=== PATIENT | male | born 1955 | race Caucasian/White ===

== ENCOUNTER 2016-04-17 01:45 | Emergency (ER) | payer OTHER ==
[~2016-04-17] VITALS: Ht 185.4 cm; Wt 108.9 kg
[~2016-04-17 01:45] MED LIST: IBUP-1481 PO
[2016-04-17 02:44] LABS: BASOPHILS # (AUTO) 0.1 /CMM (0.0-0.2); BASOPHILS % (AUTO) 0.9 % (0.0-2.0); DIFF TOTAL % 100 %; EOSINOPHILS # (AUTO) 0.4 /CMM (0.0-0.7); EOSINOPHILS % (AUTO) 3.7 % (0.0-6.0); HEMATOCRIT 40 % (39-51); HEMOGLOBIN 13.7 g/dL (13.5-17.5); LYMPHOCYTES # (AUTO) 3.1 /CMM (0.8-4.8); LYMPHOCYTES % (AUTO) 30.1 % (20.0-44.0); MEAN CORPUSCULAR HEMOGLOBIN 29 PG (26.0-33.0); MEAN CORPUSCULAR HGB CONC 34 g/dl (31.0-36.0); MEAN CORPUSCULAR VOLUME 87 fL (80-96); MONOCYTES # (AUTO) 0.6 /CMM (0.1-1.30); NEUTROPHILS # (AUTO) 6.2 /CMM (1.8-8.9); NEUTROPHILS % (AUTO) 59.3 % (43.0-81.0); PLATELET COUNT (AUTO) 221 /CMM (150-450); RED BLOOD CELL COUNT(AUTO) 4.66 MIL/uL (4.5-6.0); WHITE BLOOD COUNT (AUTO) 10.4 K/uL (4.3-11.0)
[2016-04-17 02:58] LABS: CALCIUM, SERUM 8.3 mg/dL (8.5-10.1); POTASSIUM 3.8 mmol/L (3.5-5.1)
[2016-04-17 03:05] LABS: INR 0.94 (0.87-1.13); PROTHROMBIN TIME 10.1 SECS (9.5-12.7)
[2016-04-17] MEDS ORDERED: HYDROCODONE/APAP 5/325MG 1 EACH TABLET ONE (04:09)
[2016-04-17] MEDS ORDERED: CEPHALEXIN MONOHYDRATE 500 MG CAPSULE PO ONE ×2 (04:09→04:30)
[2016-04-17] MEDS ORDERED: TDAP [DIPH/PERTUSSIS/TET] 0.5 ML VIAL IM ONE ×2 (04:10→04:30)
[2016-04-17] MEDS ORDERED: HYDROCODONE/APAP 5/325MG 1 EACH TABLET PO ONE (04:30)
[2016-04-17 06:55] VITALS: BP 124/62
== END 2016-04-17 06:55 | disposition home or self-care (01) ==
LOC: ER 01:51
DX: S02.2XXA Fracture of nasal bones, initial encounter for closed fracture (principal); I10 Essential (primary) hypertension; M54.30 Sciatica, unspecified side; Z88.1 Allergy status to other antibiotic agents; Z88.8 Allergy status to other drugs, medicaments and biological substances; F17.200 Nicotine dependence, unspecified, uncomplicated; Z59.0 Homelessness; Y08.89XA Assault by other specified means, initial encounter; Y93.89 Activity, other specified; Y92.89 Other specified places as the place of occurrence of the external cause; Y99.8 Other external cause status; R79.1 Abnormal coagulation profile
CPT/HCPCS: 36415; 70450; 70486; 71010; 72125; 80048; 85025; 85730; 90471; 90715; 99285; A4606; A6402; Z7610

== ENCOUNTER 2016-10-17 17:33 | Emergency (ER) | payer OTHER ==
[~2016-10-17] VITALS: Ht 185.4 cm; Wt 113.4 kg
[2016-10-17 18:06] VITALS: BP 123/76
--- NOTE | 2016-10-17 20:00 | NUR ---
CALLED PT IN [place], NO RESPONSE
--- NOTE | 2016-10-17 21:54 | NUR ---
CALLED PT IN [place], NO RESPONSE
== END 2016-10-17 21:55 | disposition left against medical advice (07) ==
LOC: ER 17:34
DX: Z53.21 Procedure and treatment not carried out due to patient leaving prior to being seen by health care provider (principal)
CPT/HCPCS: A4606; Z7610

== ENCOUNTER 2018-07-17 11:08 | Inpatient (IN) | payer MEDICAID, OTHER ==
[~2018-07-17] VITALS: Ht 185.4 cm; Wt 119.8 kg
[~2018-07-17 11:08] MED LIST changes: -IBUP-1481 PO; +IBUP-1953 PO
--- NOTE | 2018-07-17 11:15 | NUR ---
PT BIB SELF C/O "Abdominal pain/back pain/chills on off x couple months on/off, Fever" PT IS AAOX4, NOT IN RESPIRATORY DISTRESS, NOTED ELEVATED HR, HOOKED TO LOGISTICS SOLUTION MANAGER, KEPT RESTED AND COMFORTABLE, WILL CONTINUE TO MONITOR.
--- NOTE | 2018-07-17 11:24 | NUR ---
SEEN AND EXAMINED BY DR. HURST.
[2018-07-17] MEDS ORDERED: FAMOTIDINE/PF INJ 20 MG/2 ML VIAL IV ONE ×2 (11:30→11:32)
[2018-07-17] MEDS ORDERED: IV NS 0.9% 1,000 ML BAG IV ONE (11:30)
[2018-07-17] MEDS ORDERED: ONDANSETRON HCL/PF 4 MG/2 ML VIAL IVP ONE (11:30)
[2018-07-17] MEDS ORDERED: ONDANSETRON HCL/PF 4 MG/2 ML VIAL ONE (11:32)
[2018-07-17 11:45] LABS: BASOPHILS % (AUTO) 0.3 % (0.0-2.0); EOSINOPHILS % (AUTO) 0.6 % (0.0-6.0); HEMATOCRIT 35 % (39-51); HEMOGLOBIN 11.4 g/dL (13.5-17.5); LYMPHOCYTES # (AUTO) 1.2 /CMM (0.8-4.8); LYMPHOCYTES % (AUTO) 7.7 % (20.0-44.0); MEAN CORPUSCULAR HGB CONC 33 g/dl (31.0-36.0); MEAN CORPUSCULAR VOLUME 85 fL (80-96); MONOCYTES % (AUTO) 6.6 % (2.0-12.0); NEUTROPHILS # (AUTO) 12.9 /CMM (1.8-8.9); NEUTROPHILS % (AUTO) 84.8 % (43.0-81.0); PLATELET COUNT (AUTO) 169 /CMM (150-450); RED BLOOD CELL COUNT(AUTO) 4.08 MIL/uL (4.5-6.0); WHITE BLOOD COUNT (AUTO) 15.2 K/uL (4.3-11.0)
--- NOTE | 2018-07-17 11:45 | NUR ---
IV LINE ESTABLISHED, LABS DRAWNED AND SENT TO LAB.
--- NOTE | 2018-07-17 11:50 | NUR ---
PT IS WHEELED TO CT SCAN VIA [facility].
--- NOTE | 2018-07-17 11:59 | NUR ---
CALLED HOUSE SUP FOR TELE BED.
[2018-07-17] MEDS ORDERED: DILTIAZEM HCL 50 MG IV IV ONE (12:00)
[2018-07-17] MEDS ORDERED: DILTIAZEM HCL 25 MG IV ONE (12:01)
--- NOTE | 2018-07-17 12:18 | NUR ---
URINE SPECIMEN COLLECTED AND SENT TO LAB.
[2018-07-17 12:24] LABS: ALANINE AMINOTRANSFERASE 14 U/L (12-78); ALBUMIN 2.9 g/dL (3.4-5.0); ALKALINE PHOSPHATASE 92 U/L (46-116); ASPARTATE AMINOTRANSFERASE 27 U/L (15-37); BILIRUBIN,TOTAL 0.8 mg/dL (0.2-1.0); CALCIUM, SERUM 8.1 mg/dL (8.5-10.1); CARBON DIOXIDE 19 mmol/L (21-32); CHLORIDE 96 mmol/L (98-107); CREATININE 1.9 mg/dL (0.6-1.3); GLUCOSE 236 mg/dL (74-106); LIPASE 110 U/L (73-393); SODIUM SERUM 129 mmol/L (136-145); TOTAL PROTEIN, SERUM 7.6 g/dL (6.4-8.2); UREA NITROGEN, BLOOD 28 mg/dL (7-18)
[2018-07-17 12:30] LABS: APPEARANCE,URINE Cloudy (CLEAR); BILIRUBIN,URINE MODERATE (NEGATIVE); BLOOD, URINE Large Ery/uL (NEGATIVE); COLOR,URINE Yellow (YELLOW); KETONES,URINE 15 (NEGATIVE); LEUKOCYTE ESTERASE ,URINE Small (NEGATIVE); NITRITE, URINE Negative (NEGATIVE); PH,URINE 5.5 (5.0-8.0); PROTEIN,URINE >=300 mg/dl (NEGATIVE); UGLUCOSE Negative (NEGATIVE)
[2018-07-17 12:41] LABS: BACTERIA,URINE 2+ /HPF (None Seen); FINE GRANULAR CASTS,URINE Few /LPF (None Seen); HYALINE CASTS, URINE Few /LPF (None Seen); RBC,URINE 51-80 /HPF (0-2); SQUAMOUS EPITHELIAL CELL,UR None Seen /HPF (None Seen); WBC,URINE 21-50 /HPF (0-3)
[2018-07-17] MEDS ORDERED: BLOO-668 IN (12:45)
[2018-07-17] MEDS ORDERED: GLIM2TAB2 PO (12:45)
[2018-07-17] MEDS ORDERED: AMLO10TA7 PO (12:45)
[2018-07-17] MEDS ORDERED: SIMV10TA6 PO (12:45)
[2018-07-17] MEDS ORDERED: METF-441 PO (12:45)
[2018-07-17] MEDS ORDERED: LISI30TA4 PO (12:45)
--- NOTE | 2018-07-17 12:59 | NUR ---
BED 322-2, MIGUEL ANGEL FOR REPORT
[2018-07-17] MEDS ORDERED: ZOLPIDEM TARTRATE 5 MG TABLET PO PRN (13:00)
[2018-07-17] MEDS ORDERED: Z GUARD REMEDY 2 OZ OINT TP PRN (13:00)
[2018-07-17] MEDS ORDERED: ACETAMINOPHEN 325 MG TABLET PO PRN (13:00)
[2018-07-17] MEDS ORDERED: MAGNESIUM HYDROXIDE 30 ML UDC PO PRN (13:00)
[2018-07-17] MEDS ORDERED: MAG HYDROX/AL HYDROX/SIMETH 30 ML UDC PO PRN (13:00)
[2018-07-17] MEDS ORDERED: ONDANSETRON HCL/PF 4 MG/2 ML VIAL IVP PRN (13:00)
--- NOTE | 2018-07-17 13:11 | NUR ---
REPORT GIVEN TO STAN FOR KIA.
[2018-07-17 14:00] VITALS: BP 105/65
--- NOTE | 2018-07-17 14:00 | NUR ---
MALARIOLOGIST NOTES PATIENT ADMITTED FROM ER ON TELE 62Y/OLD MALE ON Dx OF A-FIB. PATIENT A/O X4, NO ACUTE RESPIRATORY DISTRESS, UNLABORED. TELE MONITOR ON ST-113, V/S TAKEN BP-105/65, P-118, R-20, T-98.4, ROOM AIR. SKIN ASSESSMENT DONE INTACT. PATIENT WAS COMPLAINING OF LOWER BACK PAIN 9/10 PER PAIN SCALE. PATIENT AMBULATORY SELF CARE, USING URINAL. CALL LIGHT WITHIN TO REACH. BELONGING CHECKED. DR CARL AWARE OF NEW PATIENT , AND MEDICATION. CONTINUED MONITORING.
[2018-07-17] MEDS: IV NS 0.9% 1,000 ML IV SCH (14:16)
[2018-07-17] MEDS: HYDROCODONE/APAP 5/325MG 1 EACH TABLET PO PRN (14:24)
--- NOTE | 2018-07-17 14:24 | NUR ---
RN NOTES ADMINISTERED NARCO 5/325 MG PO PRN FOR LOWER BACK PAIN 12/14 PER PATIENT REQUEST, BS-168 MG/DL, GIVEN SNACK TO EAT, CALL LIGHT WITHIN TO REACH, SAFETY PRECAUTION MAINTAINED ALL THE TIME.
[2018-07-17] MEDS: CEFTRIAXONE 1 G in IV D5W 50 ML IV SCH (14:44)
--- NOTE | 2018-07-17 14:44 | NUR ---
RN NOTES ADMINISTERED MAALOX FOR STOMACHACHE, ALSO INFUSING ROCEPHIN 1 GR IV.
[2018-07-17 17:41] VITALS: BP 113/65
[2018-07-17] MEDS: SIMVASTATIN 10 MG TABLET PO SCH (17:45)
--- NOTE | 2018-07-17 18:00 | NUR ---
RN NOTES DVT PUMP ON FOR CLOTH PREVENTION.
[2018-07-17 18:07] LABS: MAGNESIUM 1.6 mg/dL (1.8-2.4); PHOSPHORUS 2.5 mg/dL (2.5-4.9)
[2018-07-17 18:25] VITALS: BP 113/65
[2018-07-17] MEDS ORDERED: Magnesium 1GM/D5W 100ML PREMIX 100 ML IV SCH (18:30)
--- NOTE | 2018-07-17 18:30 | NUR ---
RN NOTES PATIENT STABLE INFUSING MAGNESIUM 100 ML/HE, PATIENT STABLE, SCHEDULED MEDICATION ADMINISTERED, V/S STABLE, PATIENT REFUSED PAIN AT THIS TIME. CALL LIGHT WITHIN TO REACH, SAFETY PRECAUTION MAINTAINED ALL THE TIME.
--- NOTE | 2018-07-17 19:10 | NUR ---
GANG MOWER OPERATOR OPENING NOTES Received patient in bed, watching TV. Alert, orientedx4. Breathing even and unlabored. On O2 2LPM via NC saturating well. Denies any pain. Tele monitor in place, AFIB 113. IV on L hand infusing Magnesium @100mL/hr. Call light within reach. Bed in lowest, locked position. Will continue to monitor accordingly
[2018-07-17 20:00] VITALS: BP 129/68
[2018-07-18] VITALS (8 sets, daily range): BP systolic 95–151; BP diastolic 55–80
[2018-07-18] MEDS: HYDROCODONE/APAP 5/325MG 1 EACH TABLET PO PRN ×3 (00:31→20:29)
--- NOTE | 2018-07-18 00:31 | NUR ---
RN NOTES Patient c/o back pain, 11/13. [place] 5-325 PO given as ordered. Will continue to monitor
[2018-07-18] MEDS: IV NS 0.9% 1,000 ML IV SCH ×3 (02:00→19:56)
[2018-07-18 06:11] LABS: BASOPHILS # (AUTO) 0.1 /CMM (0.0-0.2); BASOPHILS % (AUTO) 0.5 % (0.0-2.0); EOSINOPHILS % (AUTO) 1.2 % (0.0-6.0); HEMATOCRIT 33 % (39-51); LYMPHOCYTES # (AUTO) 0.9 /CMM (0.8-4.8); LYMPHOCYTES % (AUTO) 7.3 % (20.0-44.0); MEAN CORPUSCULAR HGB CONC 33 g/dl (31.0-36.0); MEAN CORPUSCULAR VOLUME 85 fL (80-96); MONOCYTES % (AUTO) 8.1 % (2.0-12.0); NEUTROPHILS # (AUTO) 10.4 /CMM (1.8-8.9); NEUTROPHILS % (AUTO) 82.9 % (43.0-81.0); PLATELET COUNT (AUTO) 164 /CMM (150-450); RED BLOOD CELL COUNT(AUTO) 3.91 MIL/uL (4.5-6.0); WHITE BLOOD COUNT (AUTO) 12.5 K/uL (4.3-11.0)
[2018-07-18 06:40] LABS: FREE PSA 0.08 ng/mL (0.00-45); PROSTATE SPECIFIC ANTIGEN SCR 1.88 ng/mL (0.00-4.00)
[2018-07-18 06:46] LABS: CALCIUM, SERUM 8.4 mg/dL (8.5-10.1); CREATININE 1.8 mg/dL (0.6-1.3); MAGNESIUM 2.1 mg/dL (1.8-2.4); PHOSPHORUS 2.6 mg/dL (2.5-4.9); POTASSIUM 4.4 mmol/L (3.5-5.1)
--- NOTE | 2018-07-18 06:46 | NUR ---
BANQUET CAPTAIN CLOSING NOTES Patient resting in bed alert and oriented x4. No complaints of pain at this time. Respirations even and unlabored, no acute distress noted. Peripheral IV infusing @ 100mL/hr. Tele monitor in place- a-fib 128. Safety and fall precautions in place: bed in lowest and locked position, side rails up x2, call light and personal possessions within reach. Will endorse KIA to oncoming RN
--- NOTE | 2018-07-18 07:20 | NUR ---
STEEL WORKER OPENING NOTE RECEIVED PATIENT IN BED. ALERT ORIENTED X3. ON 2L O2 VIA NC, TOLERATING WELL. IN NO APPARENT DISTRESS OR DISCOMFORT AT THIS TIME. RESPIRATIONS EVEN ANS UNLABORED. DENIES PAIN AND SOB. PATIENT ON TELE MONITORING WITH A-FIB AND HR OF 129. LEFT HAND 22G IVC WITH NS RUNNING AT 100 ML/HR, PATENT AND INTACT. PATIENT KEPT CLEAN AND COMFORTABLE. ALL NEEDS ATTENDED, SAFETY MEASURES IN PLACE, BED IN LOW LOCKED POSITION, SIDE RAILS UP X2, CALL LIGHT WITHIN EASY REACH. WILL CONTINUE TO MONITOR.
[2018-07-18] MEDS: GLIMEPIRIDE 4 MG TABLET PO SCH (08:45)
[2018-07-18] MEDS ORDERED: LISINOPRIL (10MG) 10 MG TABLET PO SCH (09:00)
[2018-07-18] MEDS ORDERED: RIVAROXABAN 10 MG TABLET PO SCH (09:00)
[2018-07-18] MEDS ORDERED: METFORMIN 850 MG TABLET PO SCH (09:00)
[2018-07-18] MEDS ORDERED: AMLODIPINE BESYLATE 10 MG TABLET PO SCH (09:00)
[2018-07-18] MEDS: DILTIAZEM HCL CD 240 MG PO SCH (09:49)
[2018-07-18] MEDS: CEFTRIAXONE 1 G in IV D5W 50 ML IV SCH (14:40)
[2018-07-18] MEDS: SIMVASTATIN 10 MG TABLET PO SCH (17:12)
--- NOTE | 2018-07-18 17:48 | NUR ---
TELE/RN NOTE RECEIVED THE PATIENT FROM SHREYAS KWAN. THE PATIENT ALERT AND ORIENTED X4. DENIES PAIN. RESPIRATION REGULAR AND UNLABORED. IN ROOM AIR AND DENIES SOB. LEFT HAND G 22 PATENT AND NORMAL SALINE INFUSING AT 100ML/HR. BED LOW AND LOCKED. WILL CONTINUE TO MONITOR.
--- NOTE | 2018-07-18 17:57 | NUR ---
PATIENT IN STABLE CONDITION. ENDORSED TO CHAY RN FOR KIA.
--- NOTE | 2018-07-18 18:54 | NUR ---
TELE/RN CLOSING NOTE THE PATIENT ALERT AND ORIENTED X4. IN ROOM AIR AND SATURATION AT 96%. DENIES SOB. RESPIRATION REGULAR AND UNLABORED. DENIES PAIN. EXTERNAL TELE BOX READING IS AT AFIB 98. THE PATIENT IN NO APPARENT DISTRESS. LEFT HAND G 22 PATENT AND NORMAL SALINE INFUSING PER ORDER AND NO S/S INFILTRATION NOTED. BED LOW AND LOCKED. SIDE RAILS UP X3. CALL LIGHT WITHIN REACH. WILL ENDORSE TO BOTTLE PACKING MACHINE CLEANER.
--- NOTE | 2018-07-18 19:21 | NUR ---
SENIOR QA ENGINEER RECEIVE PT IN BED A/O X 3, A-FIB 98 IN THE TELE MONITOR RESPIRATIONS EVEN AND UNLABORED, NO SOB NOTED, NO DISTRESS, SAFETY MEASURES IN PLACE. WILL CONTINUE TO MONITOR.
[2018-07-19 00:05] VITALS: BP 95/55
[2018-07-19 04:16] VITALS: BP 105/60
[2018-07-19] MEDS: IV NS 0.9% 1,000 ML IV SCH (05:15)
--- NOTE | 2018-07-19 06:08 | NUR ---
FOREIGN LANGUAGE INSTRUCTOR CLOSING ASLEEP AND EASILY AWAKEN, WITH TELE READING OF A-FIB 116 IN THE TELE MONITOR. RESPIRATION EVEN AND UNLABORED, STABLE AND NOT IN DISTRESS, NURSING CARE RENDERED. NEEDS ATTENDED AND ANTICIPATED, KEPT CLEAN AND DRY AND COMFORTABLE. NO COMPLAIN OF PAIN. SAFETY MEASURES AT ALL TIMES. ENDORSE TO THE NEXT SHIFT POC.
[2018-07-19 07:05] LABS: BASOPHILS % (AUTO) 0.5 % (0.0-2.0); EOSINOPHILS % (AUTO) 1.6 % (0.0-6.0); HEMATOCRIT 34 % (39-51); HEMOGLOBIN 11.5 g/dL (13.5-17.5); LYMPHOCYTES % (AUTO) 9.5 % (20.0-44.0); MEAN CORPUSCULAR HGB CONC 34 g/dl (31.0-36.0); MEAN CORPUSCULAR VOLUME 84 fL (80-96); MONOCYTES # (AUTO) 1.1 /CMM (0.1-1.30); MONOCYTES % (AUTO) 11.1 % (2.0-12.0); NEUTROPHILS # (AUTO) 7.9 /CMM (1.8-8.9); NEUTROPHILS % (AUTO) 77.3 % (43.0-81.0); PLATELET COUNT (AUTO) 145 /CMM (150-450); RED BLOOD CELL COUNT(AUTO) 4.08 MIL/uL (4.5-6.0); WHITE BLOOD COUNT (AUTO) 10.3 K/uL (4.3-11.0)
[2018-07-19 07:13] LABS: ALBUMIN 2.6 g/dL (3.4-5.0); BILIRUBIN,TOTAL 0.8 mg/dL (0.2-1.0); CALCIUM, SERUM 8.2 mg/dL (8.5-10.1); CREATININE 1.5 mg/dL (0.6-1.3); MAGNESIUM 1.8 mg/dL (1.8-2.4); PHOSPHORUS 2.7 mg/dL (2.5-4.9); POTASSIUM 3.9 mmol/L (3.5-5.1); TOTAL PROTEIN, SERUM 7.1 g/dL (6.4-8.2)
--- NOTE | 2018-07-19 07:32 | NUR ---
RN OPENING NOTES PT AWAKE AND RESTING IN BED. PT COMPLAINS OF BACK PAIN. NO COMPLAINTS OF SOB OR CHEST PAIN AT THIS TIME. PT HAS A LEFT HAND #22 IV RUNNING NS @100 ML/HR. PT TOLERATING FLUIDS WELL. SAFETY PRECAUTIONS IN PLACE, BED IN LOWEST LOCKED POSITION, X2 SIDE RAILS UP AND CALL LIGHT WITHIN REACH. WILL CONTINUE TO MONITOR. Addendum: 07/19/18 at 0735 by ANGIE KIDD RN PT TELE MONITORED WITH AFIB
[2018-07-19 08:12] VITALS: BP 145/64
--- NOTE | 2018-07-19 08:30 | NUR ---
RN NOTES PT NOTED TO HAVE A TEMPERATURE OF 99.6. WILL GIVE TYLENOL AND CONTINUE TO MONITOR.
[2018-07-19] MEDS: DILTIAZEM HCL CD 240 MG PO SCH (08:39)
[2018-07-19] MEDS: GLIMEPIRIDE 4 MG TABLET PO SCH (08:40)
--- NOTE | 2018-07-19 09:30 | NUR ---
RN NOTES PT TEMPERATURE 98.4.
[2018-07-19] MEDS: METOPROLOL TARTRATE 25 MG TABLET PO SCH ×2 (10:27→22:12)
[2018-07-19 12:15] VITALS: BP 105/55
[2018-07-19] MEDS: CEFTRIAXONE 1 G in IV D5W 50 ML IV SCH (14:50)
[2018-07-19 16:00] VITALS: BP 142/74
[2018-07-19] MEDS: SIMVASTATIN 10 MG TABLET PO SCH (17:36)
[2018-07-19] MEDS: RIVAROXABAN 10 MG TABLET PO SCH (17:36)
[2018-07-19] MEDS: IV NS 0.9% 1,000 ML IV PRN (17:37)
--- NOTE | 2018-07-19 18:18 | NUR ---
RN CLOSING NOTES PT AWAKE AND RESTING IN BED. NO COMPLAINTS OF SOB OR CHEST PAIN DURING SHIFT. PT HAS A LEFT HAND #22 IV RUNNING NS @100 ML/HR. PT TOLERATING FLUIDS WELL. PT TELE MONITORED WITH AFIB. SAFETY PRECAUTIONS IN PLACE, BED IN LOWEST LOCKED POSITION, X2 SIDE RAILS UP AND CALL LIGHT WITHIN REACH. WILL ENDORSE TO TOOL DISPATCHER NURSE FOR CONTINUITY OF CARE.
--- NOTE | 2018-07-19 19:35 | NUR ---
TELE/RN NOTES RECEIVED PT. LYING IN BED. PT. IS AWAKE, ALERT AND ORIENTED X4. BREATHING EVEN AND UNLABORED ON ROOM AIR. NO SOB, RESPIRATORY DISTRESS OR COMPLAINTS OF PAIN NOTED AT THIS TIME. PT. WITH EXTERNAL CORPORATE ETHICS OFFICER PRESENT AND INTACT CURRENT RHYTHM = AFIB HR 105. PT. WITH LEFT HAND 22 GAUGE PERIPHERAL IV PRESENT, PATENT AND INTACT ADMINISTERING TO PT. NS @100ML/HR. BED LOCKED AND IN LOWEST POSITION, SIDE RAILS UP X2, CALL LIGHT WITHIN REACH, WILL CONTINUE TO MONITOR.
[2018-07-19 20:00] VITALS: BP 151/67
[2018-07-20] VITALS: BP 133/69
[2018-07-20] MEDS ORDERED: PANTOPRAZOLE 40 MG VIAL ONE (01:14)
--- NOTE | 2018-07-20 06:45 | NUR ---
TELE/RN NOTES PT. IS LYING IN BED RESTING, BREATHING EVEN AND UNLABORED ON ROOM AIR. NO SOB, RESPIRATORY DISTRESS OR COMPLAINTS OF PAIN NOTED AT THIS TIME. PT. WITH EXTERNAL VOCATIONAL PSYCHOLOGIST PRESENT AND INTACT CURRENT RHYTHM = AFIB HR 107. PT. WITH LEFT HAND 22 GAUGE PERIPHERAL IV PRESENT, PATENT AND INTACT ADMINISTERING TO PT. NS @100ML/HR. ALL PT. NEEDS MET. BED LOCKED AND IN LOWEST POSITION, SIDE RAILS UP X2, CALL LIGHT WITHIN REACH, WILL ENDORSE TO DAYSHIFT NURSE FOR CONTINUITY OF CARE.
--- NOTE | 2018-07-20 07:45 | NUR ---
Tele/RN - Assessment Patient awake, A/O x 4, no complaints overnight, denies chest pain at this time, tele shows A.Fib, no apparent distress noted, afebrile, stable on room air. IVF NS at 100 ml/hr infusing well on the left hand with no signs of infiltration. Skin is intact. Patient is ambulatory with steady gait. Patient educated on plan of care. Will continue with current medical management.
[2018-07-20] MEDS: IV NS 0.9% 1,000 ML IV PRN (07:54)
[2018-07-20 08:00] VITALS: BP 169/85
[2018-07-20] MEDS: DILTIAZEM HCL CD 240 MG PO SCH (08:05)
[2018-07-20] MEDS: METOPROLOL TARTRATE 25 MG TABLET PO SCH (08:05)
[2018-07-20] MEDS: GLIMEPIRIDE 4 MG TABLET PO SCH (08:05)
[2018-07-20] MEDS ORDERED: METOPROLOL TARTRATE 50 MG TABLET PO SCH (09:00)
--- NOTE | 2018-07-20 11:45 | NUR ---
MS/RN - S/b Occupational Medicine Specialist Seen and examined by Dr. Seaman with no new orders.
[2018-07-20] MEDS ORDERED: DILT240C88 PO (13:05)
[2018-07-20] MEDS ORDERED: METO50TA16 PO (13:05)
[2018-07-20] MEDS ORDERED: RIVA10TA PO (13:05)
[2018-07-20] MEDS ORDERED: SULF1TAB48 PO (13:05)
--- NOTE | 2018-07-20 13:15 | NUR ---
MS/RN - S/b Hospitalist Seen and examined by PALLAVI Cano with order to discharge patient today. Pt was instructed to hold Lisinopril and Amlodipine, and start his new meds of Metoprolol/Zarelto/Cardizem and Bactrim for the next 5 days for UTI. He has also been instructed to f/u with his PCP in the next week to check for resolution of his UTI. He is stable and medically cleared for DC with the above plan. He has been cleared by cardiology to discharge with his HR in the 100-120s Afib, as this is his baseline and treatment plan is to anticoagulate for 3 weeks and then cardiovert.
--- NOTE | 2018-07-20 14:02 | NUR ---
Social service consult requested by PALLAVI Montero due to pt. living in his car. Pt. is a 62 year old male who was admitted to [facility] for Pyelonephritis. Sw met with pt. bedside. Pt. is alert and oriented x 4. Pt. was cooperative and pleasant with SW during the assessment. Per Pt. he lives in between motels and his car. Pt. has been living like this for the past 2 years. Pt. receives $1018 in SSI per month. SW inquired with pt. if he has linked up with caseworkers in the community for permanent housing. Pt. stated, he doesn't want to at this time since he is planning to live in [facility]. Pt. denies alcohol, drug and cigarette use. SW offered pt. homeless correction placement and resources, however, pt. declined stating, " I probably know more resources than you." Pt. denies any suicidal ideations at this time. Pt. wants to go back to his car upon discharge. Homeless patient Waiver Form was signed by the pt. and placed in pt's chart. No other social service needs are requested at this time. SW is available, if needed, Med Surg 3 KYLE Granados has been updated with pt's discharge plan.
[2018-07-20] MEDS: CEFTRIAXONE 1 G in IV D5W 50 ML IV SCH (14:03)
[2018-07-20 16:00] VITALS: BP 155/80
[2018-07-20] MEDS: RIVAROXABAN 10 MG TABLET PO SCH (16:24)
--- NOTE | 2018-07-20 17:55 | NUR ---
MS/RN - Discharge Patient alert and oriented throughout the shift, discharged to home/self-care in stable condition, remain afebrile, denies any pain, not in any form of distress, ambulatory with steady gait. Per patient, he lives in his car and sometimes goes to his brother's place to stay. Patient signed the homeless waiver form and refused all resources offered by . Reviewed discharge instructions with patient and he verbalized full understanding of all teachings including medications and follow-up care with PCP next week to check for resolution of UTI. Stop taking amlodipine and lisinopril, start taking cardizem/metoprolol/xarelto, continue the rest of your home meds, take 5 more days of bactrim. F/u with your brazing machine operator in the next week for medication mgmt and in 3 weeks as there is the plan to cardiovert after 3 weeks of anticoagulation (xarelto). Seek immediate medical attention for worsening symptoms, chest pain, shortness of breath, palpitations, abdominal pain/distention, intractable nausea and vomiting, diarrhea, hematochezia, melena, weakness, loss of consciousness, neurological deficit, or any other emergent concerns. All belongings with patient and he deny any missing items. Patient refused photos to be taken of skin, no breakdown. Saline lock removed on the left hand with catheter tip intact, no redness, no swelling noted at the site. Discharge paperwork signed and copies were given per protocol. Accompanied to the lobby and transported by private car.
--- NOTE | 2018-07-21 13:08 | NUR ---
MS CHAIR PAD MAKER FOLLOW UP YES, PT STATES THAT HIS INSURANCE DOESN'T COVER THE XARELTO PRESCRIPTION THAT " WANTS ME TO TAKE". PROVIDED PT WITH PHONE NUMBER AND ADDRESS FOR DR. ESPINOZA OFFICE WELL CASE MANAGEMENT OFFICE. PROVIDED EDUCATION OF IMPORTANCE OF CONTINUING TO TAKE ANTI-COAGULATION MEDICATIONS ORDERED AND NOT SKIP DOSES. ENCOURAGED PT TO CALL OFFICE AND CASE MANAGEMENT CHRIS. PT STATED HE WOULD AND THANKED THE NURSE.
== END 2018-07-20 18:00 | disposition home or self-care (01) | DRG 463 ==
LOC: ER 11:10 → TELE 13:37 → MED 07-20 08:42
PROVIDERS: ADMIT Family Medicine; ATTEND Registered Nurse
DX: N39.0 Urinary tract infection, site not specified (principal); N17.0 Acute kidney failure with tubular necrosis; E11.65 Type 2 diabetes mellitus with hyperglycemia; E44.0 Moderate protein-calorie malnutrition; I48.91 Unspecified atrial fibrillation; E83.51 Hypocalcemia; N10 Acute pyelonephritis; E87.1 Hypo-osmolality and hyponatremia; M54.30 Sciatica, unspecified side; M19.90 Unspecified osteoarthritis, unspecified site; Z88.8 Allergy status to other drugs, medicaments and biological substances; Z59.0 Homelessness; Z87.891 Personal history of nicotine dependence; Z79.84 Long term (current) use of oral hypoglycemic drugs; Z79.899 Other long term (current) drug therapy; Z98.890 Other specified postprocedural states; T39.315A Adverse effect of propionic acid derivatives, initial encounter; T50.2X5A Adverse effect of carbonic-anhydrase inhibitors, benzothiadiazides and other diuretics, initial encounter; T44.5X5A Adverse effect of predominantly beta-adrenoreceptor agonists, initial encounter; Y92.9 Unspecified place or not applicable; B96.1 Klebsiella pneumoniae [K. pneumoniae] as the cause of diseases classified elsewhere
CPT/HCPCS: 36415; 71045-TC; 80048-TC; 80053-TC; 80061-TC; 80076-TC; 81000-TC; 82728-TC; 82962-TC; 83540-TC; 83690-TC; 83735-TC; 84100-TC; 84153-TC; 84154-TC; 84439-TC; 84443-TC; 84484-TC; 85025-TC; 85730-TC; 87081-TC; 87086-TC; 87186-TC; 93307-TC; C9113; G0378; J0696; J2405; J3475; J3490; J7030; J7060

== ENCOUNTER 2019-12-01 00:55 | Inpatient (IN) | payer MEDICAID, OTHER ==
[~2019-12-01] VITALS: Ht 185.4 cm; Wt 122.5 kg
[~2019-12-01 00:55] MED LIST changes: +AMLO10TA7 PO; +BLOO-668 IN; +DILT240C88 PO; +GLIM2TAB31 PO; -IBUP-1953 PO; +LISI30TA4 PO; +METF-441 PO; +METO50TA16 PO; +RIVA10TA PO; +SIMV10TA98 PO; +SULF1TAB48 PO
--- NOTE | 2019-12-01 01:00 | NUR ---
PT CAME TO THE ED C/O PALPITATIONS X3 DAYS +SOB,-COUGH,-FEVER. PT DENIES ANY CHEST PAIN AT THIS TIME. PT AAOX4, RESPIRATIONS EVEN AND UNLABORED ON RA W/ NAD NOTED. PT CONNECTED TO THE HEALTH SERVICE WORKER AND POX
--- NOTE | 2019-12-01 01:10 | NUR ---
BLOOD COLLECTED AND SENT TO LAB
[2019-12-01] MEDS ORDERED: DILTIAZEM HCL 25 MG IV ONE (01:18)
[2019-12-01 01:30] LABS: BASOPHILS % (AUTO) 0.3 % (0.0-2.0); EOSINOPHILS % (AUTO) 1.2 % (0.0-6.0); HEMATOCRIT 42 % (39-51); HEMOGLOBIN 14.1 g/dL (13.5-17.5); LYMPHOCYTES # (AUTO) 1.6 /CMM (0.8-4.8); LYMPHOCYTES % (AUTO) 15.5 % (20.0-44.0); MEAN CORPUSCULAR HGB CONC 34 g/dl (31.0-36.0); MEAN CORPUSCULAR VOLUME 88 fL (80-96); MONOCYTES # (AUTO) 1.2 /CMM (0.1-1.30); MONOCYTES % (AUTO) 11.5 % (2.0-12.0); NEUTROPHILS # (AUTO) 7.5 /CMM (1.8-8.9); NEUTROPHILS % (AUTO) 71.5 % (43.0-81.0); PLATELET COUNT (AUTO) 181 /CMM (150-450); RED BLOOD CELL COUNT(AUTO) 4.76 MIL/uL (4.5-6.0); WHITE BLOOD COUNT (AUTO) 10.4 K/uL (4.3-11.0)
[2019-12-01] MEDS ORDERED: DILTIAZEM HCL 50 MG IV IV ONE (01:30)
[2019-12-01] MEDS ORDERED: DILTIAZEM HCL IV 125 MG in IV NS 0.9% 100 ML IV PRN (01:30)
--- NOTE | 2019-12-01 01:35 | NUR ---
PER VERBAL MD ORDER, HOLD CARDIZEM DRIP 125 MG IN 100 MLS IV N.S
[2019-12-01 01:53] LABS: ALANINE AMINOTRANSFERASE 16 U/L (12-78); ALBUMIN 3.4 g/dL (3.4-5.0); ALKALINE PHOSPHATASE 87 U/L (46-116); ASPARTATE AMINOTRANSFERASE 20 U/L (15-37); B-TYPE NATRIURETIC PEPTIDE 718 PG/ML (0-125); BILIRUBIN,DIRECT 0.1 mg/dL (0.0-0.2); BILIRUBIN,TOTAL 0.6 mg/dL (0.2-1.0); CARBON DIOXIDE 22 mmol/L (21-32); CHLORIDE 99 mmol/L (98-107); CREATININE 1.4 mg/dL (0.6-1.3); GLUCOSE 199 mg/dL (74-106); POTASSIUM 3.8 mmol/L (3.5-5.1); SODIUM SERUM 134 mmol/L (136-145); UREA NITROGEN, BLOOD 14 mg/dL (7-18)
--- NOTE | 2019-12-01 01:59 | NUR ---
REC'D NEG COVID RESULTS. AWARE. CALLED NURSING SUP FOR BED
[2019-12-01] MEDS ORDERED: CLONIDINE HCL 0.1 MG TABLET ONE (02:29)
[2019-12-01] MEDS ORDERED: CLONIDINE HCL 0.1 MG TABLET PO ONE (02:30)
--- NOTE | 2019-12-01 02:33 | NUR ---
PT MEDICATED ORDERED
[2019-12-01] MEDS ORDERED: METO25TA6 PO (02:45)
[2019-12-01] MEDS ORDERED: GEMF600T PO (02:46)
[2019-12-01] MEDS ORDERED: DILT240C88 PO (02:46)
--- NOTE | 2019-12-01 02:50 | NUR ---
TELE/RN NOTES REPORT RECEIVED FROM TOW OPERATOR RAMÍREZ. PT WILL BECOMING TO ROOM 306-2
--- NOTE | 2019-12-01 02:52 | NUR ---
DR. WADSWORTH SPEAKING WITH DR. MISHRA
[2019-12-01] MEDS ORDERED: ACETAMINOPHEN 325 MG TABLET PO PRN (03:00)
[2019-12-01] MEDS ORDERED: ONDANSETRON HCL/PF 4 MG/2 ML VIAL IVP PRN (03:00)
[2019-12-01] MEDS ORDERED: Z GUARD REMEDY 2 OZ OINT TP PRN (03:00)
[2019-12-01] MEDS ORDERED: MAGNESIUM HYDROXIDE 30 ML UDC PO PRN (03:00)
[2019-12-01] MEDS ORDERED: ZOLPIDEM TARTRATE 5 MG TABLET PO PRN (03:00)
[2019-12-01] MEDS ORDERED: MAG HYDROX/AL HYDROX/SIMETH 30 ML UDC PO PRN (03:00)
--- NOTE | 2019-12-01 03:17 | NUR ---
PT TRANSFERRED TO ROOM W/ EMT AND RN VIA ACLS PROTOCOL
[2019-12-01 03:30] VITALS: BP 151/98
--- NOTE | 2019-12-01 03:30 | NUR ---
TELE/RN OPENING NOTES RECEIVED PATIENT FROM ER . PATIENT WAS TRANSFERRED VIA GURNEY, NO INJURIES SUSTAINED. PATIENT IS ON 2L OF OXYGEN O2 STAT AT 100%. VITALS SIGNS ARE BP 151/98 HR 95 RR18. PATIENT BREATHING IS EVEN AND UNLABORED. NO SIGNS OF SOB OR RESPIRATORY DISTRESS NOTED. PATIENT STATES BACK PAIN 10/10. PATIENT IV ACCESS ON LEFT AC IS INTACT. PATIENT SKIN IS INTACT. PATIENT IS ALERT AND ORIENTED X 4. SAFETY MEASURES ARE IN PLACE, BED IS LOCKED AND PLACED IN THE LOW POSITION, SIDE RAILS UP X 2. CALL LIGHT IS WITHIN REACH. WILL CONTINUE TO MONITOR PAIN.
[2019-12-01] MEDS: HYDROCODONE/APAP 5/325MG TABLET PO PRN ×2 (03:49→21:51)
--- NOTE | 2019-12-01 03:50 | NUR ---
TELE/RN NOTES PATIENT COMPLAINING OF BACK PAIN, 01/13. NORCO 5 MG PO WAS GIVEN. V/S WITHIN NORMAL LIMITS. WILL CONTINUE TO MONITOR.
[2019-12-01] MEDS ORDERED: DILTIAZEM HCL 30 MG TABLET PO SCH (06:00)
--- NOTE | 2019-12-01 06:25 | NUR ---
TELE/RN CLOSING NOTES PATIENT IS IN BED RESTING. PATIENT IS ALERT AND ORIENTED X 4. PATIENT IS ON 2L OF OXYGEN TOLERATING WELL. TELE READING A FIB 95. BREATHING IS EVEN AND UNLABORED. NO SIGNS OF SOB OR RESPIRATORY DISTRESS NOTED. PATIENT HAS IV ACCESS ON LEFT AC #20 G, INTACT AND FLUSHING WELL. PATIENT STATES NO PAIN AT THE MOMENT. ALL PATIENTS NEEDS HAVE BEEN MET DURING SHIFT. WILL ENDORSE CARE TO DAY SHIFT.
--- NOTE | 2019-12-01 07:28 | NUR ---
MAINTENANCE DEPARTMENT TECHNICIAN OPENING NOTE PATIENT IN BED RESTING COMFORTABLY. PATIENT IN NO ACUTE DISTRESS. NO SOB NOTED. PATIENT BREATHING IS EVEN AND UNLABORED. PATIENT ON CARDIAC MONITORING READING AFIB HR 83. SAFETY PRECAUTIONS IN PLACE. BED ALARM IS ON. PATIENT BED IS LOCKED AND IN LOWEST POSITION. CALL LIGHT WITHIN REACH. WILL CONTINUE TO MONITOR.
[2019-12-01] MEDS ORDERED: OMEG-167 PO (07:48)
[2019-12-01] MEDS ORDERED: ASPI-1169 PO (07:48)
[2019-12-01] MEDS ORDERED: CYAN-51 PO (07:48)
[2019-12-01 08:09] VITALS: BP 151/90
[2019-12-01] MEDS: PANTOPRAZOLE 40 MG TABLET.DR PO SCH (08:09)
[2019-12-01] MEDS ORDERED: ENOXAPARIN SODIUM 40 MG/0.4 ML DISP.SYRIN SQ SCH (09:00)
[2019-12-01] MEDS: METOPROLOL TARTRATE 50 MG TABLET PO SCH (09:56)
[2019-12-01] MEDS ORDERED: RIVAROXABAN 10 MG TABLET PO SCH (10:00)
[2019-12-01] MEDS ORDERED: METOPROLOL TARTRATE 25 MG TABLET PO SCH (10:00)
[2019-12-01 15:00] LABS: APPEARANCE,URINE SL CLOUDY (CLEAR); BILIRUBIN,URINE NEGATIVE (NEGATIVE); BLOOD, URINE SMALL Ery/uL (NEGATIVE); COLOR,URINE YELLOW (YELLOW); KETONES,URINE NEGATIVE (NEGATIVE); LEUKOCYTE ESTERASE ,URINE NEGATIVE (NEGATIVE); NITRITE, URINE NEGATIVE (NEGATIVE); PROTEIN,URINE 100 mg/dl (NEGATIVE); UGLUCOSE NEGATIVE (NEGATIVE); UROBILINOGEN,URINE 0.2 EU/dL (0.2)
--- NOTE | 2019-12-01 15:03 | NUR ---
10:00am This SW met with the patient at bedside to conduct a homelessness consult. Patient was alert and oriented x4. Patient is a 63-year-old male. Patient confirmed demographics including date of and social security number. Patient reports living in his car. Patient currently goes to a motel room once a week to bathe and reports buying bottled water to drink and refill the bottles with water from a public fountain at a park to bathe when he is not in a motel. Patient reports wanting to move to [place] in February after he receives his first pension check. Patient does not report alcohol, drug or cigarette use. Patient denies auditory and visual hallucinations. Patient does not report a mental health diagnosis. Patient denies suicidal and homicidal ideations. This SW discussed the potential of referring the patient to [facility] [facility]. Patients concern was his disability and pending pension status, and stated that he does not want to lose these benefits. Patient did give verbal consent to refer to this program if his disability income and pending pension would not be affected. This SW to receive confirmation of this status through [facility] . If this referral is unsuccessful patient would like to return to his car with cooling centers as his resource. Patient restated that he needs to wait until February to make his move to [place].
--- NOTE | 2019-12-01 15:03 | NUR ---
11:00am This SW called [facility] option 7 on behalf of the patient to find if patient pension or disability would be affected if he would be referred to this program. This SW spoke with Kellie option 7 and Kellie confirmed that patients concerns would not be affected. Patient does however need to be eligible before moving forward. This SW to refer the patient to [facility] closer to his discharge date.
--- NOTE | 2019-12-01 15:04 | NUR ---
11:15am: This SW followed up with the patient to provide cooling center information from the [facility] website: https://[email or web address].gov/heat/ . This information included the following: [facility] Open Saturday, November 23, 2019 to Monday, December 02, 2019 Hours of Operation: 12:00 p.m. to 6:00 p.m. [address] [place] [address]; [facility] Open Friday, November 22, 2019 to Monday, December 02, 2019 Hours of Operation: 12:00 p.m. to 6:00 p.m.[address] [place] [address]; [facility] Open Friday, November 22, 2019 to Monday, December 02, 2019 Hours of Operation: 12:00 p.m. to 6:00 p.m. [address] [place] [address]; [facility] [employer] Open Friday, November 22, 2019 to Monday, December 02, 2019 Hours of Operation: 12:00 p.m. to 6:00 p.m. [address] [address]; [employer] Open Friday, November 22, 2019 to Monday, December 02, 2019 Hours of Operation: 12:00 p.m. to 6:00 p.m. [address] [place] [address]; [facility] Open Friday, November 29, 2019 to Tuesday, December 03, 2019 Hours of Operation 10:00 a.m. to 6:00 p.m. [address] [place] [address]; [facility] Open Saturday, November 30, 2019 to Monday, December 02, 2019 Hours of Operation 12:00 p.m. to 6:00 p.m. [address] [place] [address]; [facility] Open Monday, November 18, 2019 to November Hours of Operation 12:00 p.m. to 6:00 p.m. [address] [place] [address]; [facility] Open Monday, November 18, 2019 to Monday, December 02, 2019 Hours of Operation 10:00 a.m. to 6:00 p.m. [address] [place] [address]; [facility] Open Saturday, November 30, 2019 to Monday, December 02, 2019 Hours of Operation 2:00 p.m. to 5:00 p.m. [address] [place], [place]; [facility] Open November to Monday, December 02, 2019 Hours of Operation 9:00 a.m. to 6:00 p.m. [address] [place] [address]; [facility] Open November to Monday, December 02, 2019 Hours of Operation 12:00 p.m. to 6:00 p.m. [address] [place] [address]
--- NOTE | 2019-12-01 15:07 | NUR ---
MAIL ROOM CLERK NOTE DISCUSSED WITH DR. DENNEY REGARDING PATIENT HISTORY OF DM. MD ORDER FOR MILD SLIDING SCALE ACHS SET.
[2019-12-01 15:29] LABS: BACTERIA,URINE None seen /HPF (None Seen); EOSINOPHIL,URINE None Seen; SQUAMOUS EPITHELIAL CELL,UR Few /HPF (None Seen); WBC,URINE 0-2 /HPF (0-3)
[2019-12-01] MEDS ORDERED: DEXTROSE 50%-WATER 50 ML DISP.SYRIN IV PRN (15:30)
[2019-12-01 15:39] LABS: CREATININE, URINE 186.5 MG/DL (30.0-125.0); URINE TOTAL PROTEIN 262.2 mg/dL (0-11.9)
[2019-12-01 16:00] VITALS: BP 138/80
[2019-12-01] MEDS: METFORMIN 850 MG TABLET PO SCH (17:00)
[2019-12-01] MEDS: BLOOD SUGAR DIAGNOSTIC 1 EACH STRIP IN SCH ×2 (17:27→21:49)
--- NOTE | 2019-12-01 17:28 | NUR ---
GLASSIE NOTE PATIENT REFUSING METFORMIN. PATIENT STATES : I DONT WANT MEDICATION RIGHT NOW, I FEEL LIKE THE SIDE EFFECTS ARE TOO MUCH".INFORMED HIM OF BLOOD SUGAR 176 AND EDUCATED RISKS VS BENEFITS. PATIENT CONTINUED TO REFUSE DESPITE EDUCATION OF RISKS VS BENEFITS. PATIENT AGREED TO TAKE PRN REGULAR INSULIN PER SLIDING SCALE.
[2019-12-01] MEDS: INSULIN REGULAR, HUMAN 100 UNIT/ML 3 ML VIAL SQ PRN ×2 (17:34→21:53)
[2019-12-01] MEDS ORDERED: GEMFIBROZIL 600 MG TABLET PO SCH (18:00)
--- NOTE | 2019-12-01 19:21 | NUR ---
TIRE MOLD TESTER CLOSING NOTE PATIENT IN BED RESTING COMFORTABLY. PATIENT IN NO ACUTE DISTRESS. NO SOB NOTED. PATIENT BREATHING IS EVEN AND UNLABORED. PATIENT ON CARDIAC MONITORING READING AFIB HR 89. SAFETY PRECAUTIONS IN PLACE. PATIENT KEPT CLEAN, DRY, AND COMFORTABLE THROUGHOUT SHIFT. NEEDS AND CONCERNS ADDRESSED. BED ALARM IS ON. PATIENT BED IS LOCKED AND IN LOWEST POSITION. CALL LIGHT WITHIN REACH. WILL ENDORSE CARE TO PM SHIFT FOR KIA.
--- NOTE | 2019-12-01 19:30 | NUR ---
TELE/RN OPENING NOTES RECEIVED PATIENT IS IN BED RESTING WATCHING TV. PATIENT IS ALERT AND ORIENTED X 4. PATIENT IS ON 2L OF OXYGEN NC TOLERATING WELL. TELE READING A FIB 85. BREATHING IS EVEN AND UNLABORED. NO SIGNS OF SOB OR RESPIRATORY DISTRESS NOTED. PATIENT HAS IV ACCESS ON LEFT AC #20 G, INTACT AND FLUSHING WELL. PATIENT STATES NO PAIN AT THE MOMENT. SAFETY MEASURES ARE IN PLACED, BED IS LOCKED AND PLACED IN THE LOWEST POSITION, SIDE RAILS UP X 2. CALL LIGHT IS WITHIN REACH. WILL CONTINUE TO MONITOR THROUGH OUT SHIFT.
[2019-12-01 20:00] VITALS: BP 144/91
[2019-12-01 20:12] VITALS: BP 144/91
[2019-12-02] VITALS: BP 138/80
[2019-12-02 00:30] VITALS: BP 138/80
[2019-12-02 04:00] VITALS: BP 130/70
--- NOTE | 2019-12-02 06:30 | NUR ---
TELE/RN CLOSING NOTES PATIENT IS IN BED RESTING. PATIENT IS ALERT AND ORIENTED X 4. PATIENT IS ON 2L OF OXYGEN NC TOLERATING WELL. TELE READING A FIB. BREATHING IS EVEN AND UNLABORED. NO SIGNS OF SOB OR RESPIRATORY DISTRESS NOTED. PATIENT HAS IV ACCESS ON LEFT AC #20 G, INTACT AND FLUSHING WELL. PATIENT STATES NO PAIN AT THE MOMENT. PATIENT WAS GIVEN MOM TO HELP GAVE A BM THIS MORNING. ALL PATIENTS NEEDS HAVE BEEN MET. SAFETY MEASURES ARE IN PLACED, BED IS LOCKED AND PLACED IN THE LOWEST POSITION, SIDE RAILS UP X 2. CALL LIGHT IS WITHIN REACH. WILL ENDORSE CARE TO DAY SHIFT.
[2019-12-02] MEDS: INSULIN REGULAR, HUMAN 100 UNIT/ML 3 ML VIAL SQ PRN ×2 (06:38→11:34)
[2019-12-02 06:39] LABS: BASOPHILS % (AUTO) 0.5 % (0.0-2.0); EOSINOPHILS % (AUTO) 2.9 % (0.0-6.0); HEMATOCRIT 43 % (39-51); HEMOGLOBIN 14.5 g/dL (13.5-17.5); LYMPHOCYTES # (AUTO) 1.8 /CMM (0.8-4.8); LYMPHOCYTES % (AUTO) 21.7 % (20.0-44.0); MEAN CORPUSCULAR HGB CONC 33 g/dl (31.0-36.0); MEAN CORPUSCULAR VOLUME 88 fL (80-96); MONOCYTES # (AUTO) 1.2 /CMM (0.1-1.30); MONOCYTES % (AUTO) 14.9 % (2.0-12.0); PLATELET COUNT (AUTO) 168 /CMM (150-450); RED BLOOD CELL COUNT(AUTO) 4.92 MIL/uL (4.5-6.0); WHITE BLOOD COUNT (AUTO) 8.3 K/uL (4.3-11.0)
[2019-12-02] MEDS: BLOOD SUGAR DIAGNOSTIC 1 EACH STRIP IN SCH ×2 (06:46→11:25)
[2019-12-02 07:01] LABS: THYROID STIMULATING HORMONE 0.568 uIU/mL (0.358-3.74)
[2019-12-02 07:02] LABS: ALBUMIN 2.9 g/dL (3.4-5.0); BILIRUBIN,TOTAL 0.5 mg/dL (0.2-1.0); CALCIUM, SERUM 8.8 mg/dL (8.5-10.1); CREATININE 1.1 mg/dL (0.6-1.3); MAGNESIUM 1.9 mg/dL (1.8-2.4); TOTAL PROTEIN, SERUM 7.3 g/dL (6.4-8.2)
--- NOTE | 2019-12-02 07:30 | NUR ---
RN OPENING NOTE PATIENT IS IN BED RESTING. PATIENT IS ALERT AND ORIENTED X 4. NO CARDIAC OR RESPIRATORY DISTRESS NOTED. NO SOB NOTED. PATIENT IS ON 2L OF OXYGEN NC TOLERATING WELL. TELE READING A FIB. BREATHING IS EVEN AND UNLABORED. PATIENT HAS IV ACCESS ON LEFT AC #20 G, INTACT AND FLUSHING WELL. SAFETY MEASURES ARE IN PLACED, BED IS LOCKED AND PLACED IN THE LOWEST POSITION, SIDE RAILS UP X 2. CALL LIGHT IS WITHIN REACH. WILL CONT TO MONITOR. .
[2019-12-02 08:00] VITALS: BP 134/83
[2019-12-02] MEDS: METFORMIN 850 MG TABLET PO SCH (08:14)
[2019-12-02] MEDS: PANTOPRAZOLE 40 MG TABLET.DR PO SCH (08:14)
[2019-12-02] MEDS: METOPROLOL TARTRATE 50 MG TABLET PO SCH (08:15)
[2019-12-02] MEDS: HYDROCODONE/APAP 5/325MG TABLET PO PRN (08:58)
[2019-12-02] MEDS ORDERED: METOPROLOL TARTRATE 50 MG TABLET PO SCH (09:00)
[2019-12-02] MEDS ORDERED: MAGNESIUM CITRATE 296 ML BOTTLE PO ONE (09:30)
--- NOTE | 2019-12-02 11:00 | NUR ---
MAG CITRATE PER PT MOM DID NOT WORK. ORDERED MAG CITRATE. 1 BOTTLE GIVE. PT WAS ABLE TO HAVE A BOWEL MOVEMENT X1. POST ADMINISTRATION.
[2019-12-02 12:00] VITALS: BP 136/90
--- NOTE | 2019-12-02 12:45 | NUR ---
BODY CHECK/INVENTORY PT REFUSED BODY CHECK, HE STATES NOTHING IS WRONG WITH HIS SKIN. AND THAT HE JUST WANTS TO GET READY AND LEAVE. INVENTORY WAS ALSO DONE WITH PT. PT ACKNOWLEDGED THAT HE HAS ALL OF HIS BELONGINGS.
--- NOTE | 2019-12-02 13:06 | NUR ---
MS/RN Pain Clinic Patient needs to follow up in pain clinic with Dr Arenas upon discharge.
--- NOTE | 2019-12-02 13:15 | NUR ---
DISCHARGE PT DISCHARGED TO PROJECT ROOM [facility]. PT ASSISTED TO HIS CAR THAT WAS PARKED INFRONT OF THE ER. PT DISCHARGED IN STABLE CONDITION. D/C INSTRUCTIONS PROVIDED, INSTRUCTED PT TO MAKE A F/U APPT WITH ENDOSCOPY REGISTERED NURSE AND PCP WITHIN 1 WEEK. PER PT HE HAD ALREADY MADE APPT WITH PCP AND THAT HE JUST NEEDS TO CALL DR. DOUGHERTY OFFICE TO SCHEDULE A VISIT. D/C PAPERWORK PROVIDED. PT ACKNOWLEDGED ALL TEACHING/ INTRUCTED PT TO GO TO THE NEAREST ER IF HE EXPERIENCES CHEST PAIN, PALPITATIONS OR RESPIRATORY DISTRESS. PT VS STABLE. ALL BELONGINGS BROUGHT BY THE PT. PATIENT IS ALERT AND ORIENTED X 4. NO CARDIAC OR RESPIRATORY DISTRESS NOTED. NO SOB NOTED. PBREATHING IS EVEN AND UNLABORED. IV ACCESS ON LEFT AC #20 G, WAS REMOVED. NO S/S OF BLEEDING NOTED. PT LEFT IN STABLE CONDITION.
[2019-12-02] MEDS ORDERED: RIVA10TA PO (13:24)
--- NOTE | 2019-12-02 14:10 | NUR ---
11:00am This SW called [facility] option [facility] on behalf of the patient to create a profile. This SW spoke with Kellie option 7 and Kellie informed this SW that this patient is eligible and there is currently a bed available for this patient. This SW received information for the patient. Patient was accepted at [address] This SW provided this information to Director Industrial SHREYAS Jamison and interior plant caretaker Jina. Patient will drive himself as his car is currently located in [facility] Emergency parking lot.
[2019-12-03 08:55] LABS: PTH, INTACT 15 pg/mL (15-65)
== END 2019-12-02 13:16 | disposition home or self-care (01) | DRG 201 ==
LOC: ER 00:57 → TELE 02:30
PROVIDERS: ADMIT Internal Medicine; ATTEND Internal Medicine
DX: I48.91 Unspecified atrial fibrillation (principal); N17.0 Acute kidney failure with tubular necrosis; I12.9 Hypertensive chronic kidney disease with stage 1 through stage 4 chronic kidney disease, or unspecified chronic kidney disease; N18.9 Chronic kidney disease, unspecified; E11.22 Type 2 diabetes mellitus with diabetic chronic kidney disease; E87.1 Hypo-osmolality and hyponatremia; E86.1 Hypovolemia; E78.5 Hyperlipidemia, unspecified; Z59.0 Homelessness; Z79.84 Long term (current) use of oral hypoglycemic drugs; Z82.49 Family history of ischemic heart disease and other diseases of the circulatory system; Z83.3 Family history of diabetes mellitus; Z87.891 Personal history of nicotine dependence; E66.9 Obesity, unspecified; Z68.35 Body mass index [BMI] 35.0-35.9, adult; N13.9 Obstructive and reflux uropathy, unspecified; Z79.01 Long term (current) use of anticoagulants; G89.29 Other chronic pain
CPT/HCPCS: 36415; 71045-TC; 80048-TC; 80053-TC; 80061-TC; 80076-TC; 81000-TC; 82550-TC; 82570-TC; 82962-TC; 83735-TC; 83880; 83970; 84100-TC; 84155; 84155-TC; 84165; 84300-TC; 84443-TC; 84484-TC; 85025-TC; 87081-TC; 93307-TC; 94799-TC; A6403; C9803-CS; G0378; J1650; J1815; J3490; J7030

== ENCOUNTER 2019-12-12 13:27 | Emergency (ER) | payer MEDICAID, OTHER ==
[~2019-12-12] VITALS: Ht 185.4 cm; Wt 121.1 kg
[~2019-12-12 13:27] MED LIST changes: -AMLO10TA7 PO; +ASPI-1169 PO; -BLOO-668 IN; +CYAN-51 PO; +GEMF600T PO; -LISI30TA4 PO; +METO25TA6 PO; -METO50TA16 PO; +OMEG-167 PO; -SIMV10TA98 PO; -SULF1TAB48 PO
[2019-12-12 14:10] LABS: BASOPHILS # (AUTO) 0.1 /CMM (0.0-0.2); BASOPHILS % (AUTO) 0.5 % (0.0-2.0); EOSINOPHILS % (AUTO) 2.2 % (0.0-6.0); HEMATOCRIT 43 % (39-51); HEMOGLOBIN 14.2 g/dL (13.5-17.5); LYMPHOCYTES # (AUTO) 2.6 /CMM (0.8-4.8); LYMPHOCYTES % (AUTO) 20.2 % (20.0-44.0); MEAN CORPUSCULAR HGB CONC 33 g/dl (31.0-36.0); MEAN CORPUSCULAR VOLUME 89 fL (80-96); MONOCYTES # (AUTO) 1.1 /CMM (0.1-1.30); MONOCYTES % (AUTO) 8.2 % (2.0-12.0); NEUTROPHILS # (AUTO) 8.8 /CMM (1.8-8.9); NEUTROPHILS % (AUTO) 68.9 % (43.0-81.0); PLATELET COUNT (AUTO) 411 /CMM (150-450); RED BLOOD CELL COUNT(AUTO) 4.83 MIL/uL (4.5-6.0); WHITE BLOOD COUNT (AUTO) 12.8 K/uL (4.3-11.0)
--- NOTE | 2019-12-12 14:12 | NUR ---
BIB FROM HOME TO ER BED 12. AAOX4. NOT IN RESP DISTRESS, BREATHING EVEN AND UNLABORED. AMBULATORY. CAME IN FOR PALPITATION SINCE THIS MORNING. PER PT, HE FELT HIS HR IS FAST EARLIER TOOK 1.5 TABLET OF METOPROLOL 25MG. PT IS NOTED SINUS RHYTM WITH HR OF 71 ON MONITOR. PT ALSO COMPLAINING OF BILAT KNEE PAIN STARTED LAST WEEK AND THINKS THAT HIS PALPITATIONS MIGHT BE CAUSED BY HIS KNEE PAIN. MD WAS AT THE BEDSIDE FOR EVAL. ORDERS RECEIVED NOTED AND CARRIED OUT. IV LINE ESTABLISHED ON R AHND 18G. BLOOD DRAWN AND GIVEN TO [employer] WORKER AT BEDSIDE. WILL CONTINUE TO MONITOR PT
[2019-12-12 14:19] LABS: CALCIUM, SERUM 9.5 mg/dL (8.5-10.1); CARBON DIOXIDE 23 mmol/L (21-32); CHLORIDE 102 mmol/L (98-107); CREATININE 1.5 mg/dL (0.6-1.3); GLUCOSE 150 mg/dL (74-106); POTASSIUM 4.5 mmol/L (3.5-5.1); SODIUM SERUM 136 mmol/L (136-145); UREA NITROGEN, BLOOD 25 mg/dL (7-18)
[2019-12-12 14:25] LABS: ALANINE AMINOTRANSFERASE 13 U/L (12-78); ALBUMIN 3.7 g/dL (3.4-5.0); ALKALINE PHOSPHATASE 94 U/L (46-116); ASPARTATE AMINOTRANSFERASE 15 U/L (15-37); BILIRUBIN,DIRECT 0.1 mg/dL (0.0-0.2); BILIRUBIN,TOTAL 0.5 mg/dL (0.2-1.0)
[2019-12-12] MEDS ORDERED: IV NS 0.9% 1,000 ML IV ONE (14:30)
--- NOTE | 2019-12-12 16:02 | NUR ---
Patient discharged to home in stable condition. Written and verbal after care instructions given. Patient verbalizes understanding of instruction.IV removed. Catheter intact and site benign. Pressure and 4x4 applied to site. No bleeding noted. Pt ambulatory with a steady gait
[2019-12-12 16:03] VITALS: BP 142/84
== END 2019-12-12 16:03 | disposition home or self-care (01) ==
LOC: ER 13:31
DX: I48.92 Unspecified atrial flutter (principal); R53.83 Other fatigue; M25.561 Pain in right knee; M25.562 Pain in left knee; I10 Essential (primary) hypertension; E11.9 Type 2 diabetes mellitus without complications; G89.29 Other chronic pain; M54.9 Dorsalgia, unspecified; M19.90 Unspecified osteoarthritis, unspecified site; Z88.8 Allergy status to other drugs, medicaments and biological substances; Z91.018 Allergy to other foods; Z87.891 Personal history of nicotine dependence; Z79.899 Other long term (current) drug therapy; Z59.0 Homelessness; Z79.82 Long term (current) use of aspirin; Z79.84 Long term (current) use of oral hypoglycemic drugs
CPT/HCPCS: 36415; 71045; 80048; 80076; 84484; 85025; 85730; 93005 ×2; 96360; 99285; J7030

== ENCOUNTER 2020-01-14 13:46 | Emergency (ER) | payer OTHER ==
[~2020-01-14] VITALS: Ht 185.4 cm; Wt 122.5 kg
[2020-01-14 13:50] VITALS: BP 167/106
[2020-01-14 15:04] LABS: BASOPHILS # (AUTO) 0.1 /CMM (0.0-0.2); EOSINOPHILS % (AUTO) 3.9 % (0.0-6.0); HEMATOCRIT 38 % (39-51); HEMOGLOBIN 12.7 g/dL (13.5-17.5); LYMPHOCYTES # (AUTO) 2.3 /CMM (0.8-4.8); LYMPHOCYTES % (AUTO) 24.1 % (20.0-44.0); MEAN CORPUSCULAR HGB CONC 34 g/dl (31.0-36.0); MEAN CORPUSCULAR VOLUME 86 fL (80-96); MONOCYTES # (AUTO) 0.7 /CMM (0.1-1.30); MONOCYTES % (AUTO) 7.4 % (2.0-12.0); NEUTROPHILS % (AUTO) 63.6 % (43.0-81.0); PLATELET COUNT (AUTO) 300 /CMM (150-450); RED BLOOD CELL COUNT(AUTO) 4.42 MIL/uL (4.5-6.0); WHITE BLOOD COUNT (AUTO) 9.4 K/uL (4.3-11.0)
[2020-01-14 15:12] LABS: CREATININE 1.2 mg/dL (0.6-1.3); POTASSIUM 4.4 mmol/L (3.5-5.1)
[2020-01-14 15:28] LABS: ALBUMIN 3.5 g/dL (3.4-5.0); BILIRUBIN,TOTAL 0.2 mg/dL (0.2-1.0); TOTAL PROTEIN, SERUM 7.9 g/dL (6.4-8.2)
== END 2020-01-14 16:09 | disposition home or self-care (01) ==
LOC: ER 13:54
DX: M79.641 Pain in right hand (principal); R22.31 Localized swelling, mass and lump, right upper limb; I10 Essential (primary) hypertension; I48.91 Unspecified atrial fibrillation; E11.9 Type 2 diabetes mellitus without complications; G89.29 Other chronic pain; M54.9 Dorsalgia, unspecified; M19.90 Unspecified osteoarthritis, unspecified site; Z88.8 Allergy status to other drugs, medicaments and biological substances; Z91.018 Allergy to other foods; Z87.891 Personal history of nicotine dependence; Z59.0 Homelessness; Z79.899 Other long term (current) drug therapy; Z79.84 Long term (current) use of oral hypoglycemic drugs; Z79.82 Long term (current) use of aspirin
CPT/HCPCS: 36415; 73130-TC; 80053-TC; 85025-TC; 93971-TC

== ENCOUNTER → 2021-05-04 | Emergency (ER) | payer OTHER ==
[~2021-05-04] VITALS: Ht 185.4 cm; Wt 113.4 kg
[2021-05-04 13:43] VITALS: BP 165/80
--- NOTE | 2021-05-04 15:01 | NUR ---
Patient discharged to home in stable condition. Written and verbal after care instructions given. Patient verbalizes understanding of instruction.
== END | disposition home or self-care (01) ==
LOC: ER 13:31
DX: T65.893A Toxic effect of other specified substances, assault, initial encounter (principal); Y92.89 Other specified places as the place of occurrence of the external cause; I10 Essential (primary) hypertension; E11.9 Type 2 diabetes mellitus without complications; I48.91 Unspecified atrial fibrillation; M54.30 Sciatica, unspecified side; M19.90 Unspecified osteoarthritis, unspecified site; Z88.6 Allergy status to analgesic agent; Z88.9 Allergy status to unspecified drugs, medicaments and biological substances; Z91.018 Allergy to other foods; Z79.01 Long term (current) use of anticoagulants; Z79.810 Long term (current) use of selective estrogen receptor modulators (SERMs); Z79.82 Long term (current) use of aspirin; Z79.899 Other long term (current) drug therapy; Z59.00 Homelessness unspecified

== ENCOUNTER 2021-11-29 11:29 | Emergency (ER) | payer OTHER ==
[~2021-11-29] VITALS: Ht 185.4 cm; Wt 113.4 kg
[2021-11-29 13:51] LABS: CALCIUM, SERUM 8.4 mg/dL (8.5-10.1); CREATININE 1.5 mg/dL (0.6-1.3); POTASSIUM 4.2 mmol/L (3.5-5.1)
[2021-11-29 13:54] VITALS: BP 134/73
[2021-11-29] MEDS ORDERED: ALBU18HF2 INH (14:24)
--- NOTE | 2021-11-29 14:35 | NUR ---
Patient discharged to home in stable condition. Written and verbal after care instructions given. Patient verbalizes understanding of instruction.
== END 2021-11-29 14:35 | disposition home or self-care (01) ==
LOC: ER 11:31
DX: U07.1 COVID-19 (principal); R06.2 Wheezing; R53.1 Weakness; I10 Essential (primary) hypertension; I48.91 Unspecified atrial fibrillation; E11.9 Type 2 diabetes mellitus without complications; G89.29 Other chronic pain; M19.90 Unspecified osteoarthritis, unspecified site; Z88.8 Allergy status to other drugs, medicaments and biological substances; Z59.00 Homelessness unspecified; Z87.891 Personal history of nicotine dependence; Z79.899 Other long term (current) drug therapy; Z79.82 Long term (current) use of aspirin; Z79.84 Long term (current) use of oral hypoglycemic drugs
CPT/HCPCS: 36415; 71045-TC; 80048-TC